=== PATIENT | male | born 2000 | race Two or more races ===

== ENCOUNTER 2018-02-03 08:22 | Emergency (ER) | payer SELFPAY ==
[~2018-02-03] VITALS: Ht 162.6 cm; Wt 63.5 kg
[2018-02-03 08:22] VITALS: BP 114/62
--- NOTE | 2018-02-03 09:12 | NUR ---
Patient discharged to home in stable condition. Written and verbal after care instructions given. Patient verbalizes understanding of instruction. PT AMBULATORY STEADY GAIT. DENIES HEADACHE. DISCHARGE HOME WITH PTS MOM
== END 2018-02-03 09:14 | disposition home or self-care (01) ==
LOC: ER 08:24
DX: S09.90XA Unspecified injury of head, initial encounter (principal); F84.0 Autistic disorder; W22.8XXA Striking against or struck by other objects, initial encounter; Y93.89 Activity, other specified; Y92.811 Bus as the place of occurrence of the external cause; Y99.8 Other external cause status
CPT/HCPCS: A4606; Z7610